=== PATIENT | male | born 1940 | race Caucasian/White ===

== ENCOUNTER 2017-11-15 10:24 | Day surgery (SDC) | payer MEDICARE ==
[2017-11-08 14:47] LABS: BASOPHILS # (AUTO) 0.1 X10'3 (0-0.2); BASOPHILS % (AUTO) 0.7 % (0-1); EOSINOPHILS # (AUTO) 0.4 X10'3 (0-0.9); EOSINOPHILS % (AUTO) 4.3 % (0-6); HEMOGLOBIN 14.2 g/dl (14.0-17.9); LYMPHOCYTES # (AUTO) 2.3 X10'3 (1.1-4.8); LYMPHOCYTES % (AUTO) 23.7 % (21-51); MEAN CORPUSCULAR HEMOGLOBIN 29.4 PG (27.0-31.0); MEAN CORPUSCULAR VOLUME 89.2 FL (78-98); MEAN PLATELET VOLUME 7.5 FL (7.4-10.4); MONOCYTES # (AUTO) 0.7 X10'3 (0-0.9); MONOCYTES % (AUTO) 6.9 % (2-12); NEUTROPHILS # (AUTO) 6.4 X10'3 (1.8-7.7); NEUTROPHILS % (AUTO) 64.4 % (42-75); PLATELET COUNT 281 X10'3 (140-440); RED BLOOD COUNT 4.82 X10'6 (4.70-6.10); RED CELL DISTRIBUTION WIDTH 16.4 % (11.5-14.5); WHITE BLOOD COUNT 9.9 X10'3 (4.5-11.0)
[2017-11-08 14:50] LABS: PARTIAL THROMBOPLASTIN TIME 29 SECONDS (22-32); PROTHROMBIN TIME 10.7 SECONDS (9.0-12.0)
[2017-11-08 14:52] LABS: ALBUMIN 3.5 G/DL (3.4-5.0); ANION GAP 8 (8-16); BLOOD UREA NITROGEN 23 MG/DL (7-18); BUN/CREATININE RATIO 24.7 (5.4-32.0); CHLORIDE 105 MMOL/L (99-107); CREATININE 0.93 MG/DL (0.60-1.10); GLUCOSE 99 MG/DL (70-104); POTASSIUM 4.1 MMOL/L (3.5-5.1); SODIUM 144 MMOL/L (135-145); TOTAL CARBON DIOXIDE 30.9 MMOL/L (24-32); eGFR 79 ML/MIN
[~2017-11-15] VITALS: Ht 177.8 cm; Wt 68.9 kg
[2017-11-15] VITALS (10 sets, daily range): BP systolic 94–108; BP diastolic 62–74
[2017-11-15] MEDS ORDERED: normal saline 1000ml 1,000 ML IV SCH (10:50)
[2017-11-15] MEDS ORDERED: fentaNYL/PF 50MCG/1 ML 2ML syringe IV ONE (10:50)
[2017-11-15] MEDS ORDERED: MIDAZolam 5mg/ml 2ml vial IV ONE (10:50)
[2017-11-15] MEDS ORDERED: spiriva INH (11:10)
[2017-11-15] MEDS ORDERED: MULT-955 PO (11:10)
[2017-11-15] MEDS ORDERED: APIX5TAB3 PO (11:10)
[2017-11-15] MEDS ORDERED: BUPR150T8 PO (11:10)
[2017-11-15] MEDS ORDERED: ARFO15VI INH (11:10)
[2017-11-15] MEDS ORDERED: DILT120C62 PO (11:10)
[2017-11-15] MEDS ORDERED: LISI-600 PO (11:10)
[2017-11-15] MEDS ORDERED: ALB0.5UD IH (11:10)
[2017-11-15] MEDS ORDERED: ALBU18HF2 IH (11:10)
[2017-11-15] MEDS ORDERED: BUDE0.5A11 IH (11:10)
== END 2017-11-15 13:50 | disposition home or self-care (01) ==
LOC: SSTAY O 10:24
PROVIDERS: ATTEND Internal Medicine Interventional Cardiology
DX: I48.3 Typical atrial flutter (principal); I10 Essential (primary) hypertension; J43.9 Emphysema, unspecified; J96.11 Chronic respiratory failure with hypoxia; F41.8 Other specified anxiety disorders; Z79.01 Long term (current) use of anticoagulants; Z87.891 Personal history of nicotine dependence; Z87.01 Personal history of pneumonia (recurrent); Z90.89 Acquired absence of other organs; Z79.899 Other long term (current) drug therapy
CPT/HCPCS: 36415; 80048; 85025; 85610; 85730; 92960; 93005; J2250; J3010; J7030; A4620